=== PATIENT | male | born 1995 | race Asian ===

== ENCOUNTER 2019-02-20 22:57 | Emergency (ER) | payer OTHER ==
--- NOTE | 2019-02-20 23:24 | ED ---
Lower Extremity - HPI Summary HPI Summary: 23 yo male presents to [facility] with LEFT ankle injury. He tells me that he was walking down the outside steps this evening and twisted his left ankle and fell. Noticed deformity. Came directly to the ED. Denies numbness or tingling. Nothing OTC for discomfort. - History of Current Complaint Chief Complaint: EDExtremityLower Stated Complaint: LT ANKLE INJURY PER PT Time Seen by Provider: 02/20/19 23:24 Hx Obtained From: Patient Severity Initially: Severe Severity Currently: Moderate Pain Intensity: 7 Pain Scale Used: 0-10 Numeric - Allergies/Home Medications Allergies/Adverse Reactions: Allergies Allergy/AdvReac Type Severity Reaction Status Date / Time No Known Allergies Allergy Verified 02/20/19 23:06 PMH/Surg Hx/FS Hx/Imm Hx Endocrine/Hematology History: Denies: Hx Blood Disorders, Hx Diabetes Cardiovascular History: Denies: Hx Cardiac Arrest, Hx Hypertension Respiratory History: Denies: Hx Asthma, Hx Chronic Obstructive Pulmonary Disease (COPD) Neurological History: Denies: Hx CVA, Hx Headaches - Surgical History Surgical History: None - Immunization History Immunizations Up to Date: Yes Infectious Disease History: No Infectious Disease History: Denies: Traveled Outside the [place] in Last 30 Days - Family History Known Family History: Positive: None - Social History Occupation: Student Lives: Dormitory/Roommates Alcohol Use: Occasionally Substance Use Type: Reports: None Smoking Status (MU): Never Smoked Tobacco Review of Systems Constitutional: Negative Cardiovascular: Negative Respiratory: Negative Gastrointestinal: Negative Musculoskeletal: Other - Left ankle pain Skin: Negative Neurological: Negative Psychological: Normal All Other Systems Reviewed And Are Negative: No Physical Exam - Summary Physical Exam Summary: GENERAL: NAD. WDWN. No pain distress. SKIN: No rashes, sores, lesions, or open wounds. CHEST: No accessory muscle use. Breathing comfortably and in no distress. CV: Pulses intact PT and DP. Cap refill <2seconds MSK: LEFT ANKLE: Moderate edema. Noticed lateral deformity at distal fibula. NEURO: Alert. Sensations intact and symmetric B/L LEs PSYCH: Age appropriate behavior. Triage Information Reviewed: Yes Vital Signs On Initial Exam: Initial Vitals Temp Pulse Resp BP Pulse Ox 100.2 F 99 18 142/67 96 02/20/19 23:06 02/20/19 23:06 02/20/19 23:06 02/20/19 23:06 02/20/19 23:06 Vital Signs Reviewed: Yes Procedures - Sedation Patient Received Moderate/Deep Sedation with Procedure: No - Splinting 1 Location: left ankle Hand-Made Type: orthoglass Splint: posterior walking Pre-Proc Neuro Vasc Exam: normal Post-Proc Neuro Vasc Exam: normal Splint Applied by Provider: [facility] - Vital Signs Vital Signs Temp Pulse Resp BP Pulse Ox 02/20/19 23:06 100.2 F 99 18 142/67 96 - Laboratory Lab Statement: Any lab studies that have been ordered have been reviewed, and results considered in the medical decision making process. - Radiology Ankle XR Radiology Interpretation Completed By: ED Physician Summary of Radiographic Findings: Distal fibula spiral fracture and medial malleolus motise widen - reviewed with Dr. Renee Tibfib XR Radiology Interpretation Completed By: ED Physician Summary of Radiographic Findings: Distal fib spiral fx Lower Extremity Course/Dx - Course Course Of Treatment: XR wet reads as above. Discussed with Dr. Francis of Ortho and she recommends splinting and call the [facility] on friday for an appt. Discussed with pt. He was placed in a posterior and sugar tong splint and provided with crutches to be non-weight bearing. May take tylenol/ibuprofen as directed for discomfort. elevate and ice. - Diagnoses Provider Diagnoses: Spiral fracture of shaft of fibula Discharge ED - Sign-Out/Discharge Documenting (check all that apply): Patient Departure - Discharge Plan Condition: Stable Disposition: HOME Patient Education Materials: Ankle Fracture (ED) Referrals: No Primary Care Phys,NOPCP [Primary Care Provider] - Radha Francis MD [Medical Doctor] - 2 Days Additional Instructions: If you develop a fever, shortness of breath, chest pain, new or worsening symptoms - please call your PCP or go to the ED immediately. Rest, Ice, and elevate your ankle as much as possible Use the crutches to be non-weight bearing Please call Orthopedics at the number below on Friday morning and they will see you May take tylenol/ibuprofen as directed for discomfort - Billing Disposition and Condition Condition: STABLE Disposition: Home
[2019-02-21] MEDS ORDERED: Ibuprofen TAB* 800 MG PO ONE (00:09)
[2019-02-21 01:07] VITALS: BP 142/77
== END 2019-02-21 01:04 | disposition home or self-care (01) ==
LOC: ED 22:57
DX: S82.442A Displaced spiral fracture of shaft of left fibula, initial encounter for closed fracture (principal); W10.9XXA Fall (on) (from) unspecified stairs and steps, initial encounter; Y92.9 Unspecified place or not applicable
CPT/HCPCS: 99282; A9270-GY

== ENCOUNTER → 2019-02-25 11:59 | Day surgery (SDC) | payer OTHER ==
[~2019-02-25 11:59] MED LIST: Buffered Lidocaine 1% SYRIN* 1 ML/SYRINGE INTRADERM ONE; Bupivacaine 0.5%* 50 ML MDV VIAL ONE; Dexamethasone TAB* 4 MG ONE; Dexamethasone TAB* 4 MG PO ONE; DiMENhydriNATE IV* 50 MG/ML VIAL IV PUSH PRN; Famotidine IV* 10 MG/ML 2 ML (20 mg) IV ONE; Famotidine IV* 10 MG/ML 2 ML (20 mg) ONE; HYDROmorphone INJ1* 1 MG/ML SYRINGE ONE; KETAMINE HCL* 50 MG/ML 10 ML VIAL ONE; Ketorolac INJ* 30 MG/ML 1 ML VIAL ONE; Metoprolol Tartrate IV* 1 MG/ML 5 ML VIAL ONE; Midazolam* 1 MG/ML 2 ML VIAL (2 MG) ONE; Midazolam* 1 MG/ML 5 ML VIAL (5 MG) ONE; Naloxone* 0.4 MG/ML 1 ML VIAL IV PRN; Ondansetron ODT TAB* 4 MG ONE; Ondansetron ODT TAB* 4 MG PO ONE; PROCHLORPERAZINE INJ 5 MG/ML 2 ML VIAL IV PRN; Propofol* 10 MG/ML 20 ML BTL ONE; Scopolamine 1.5 mg* PATCH TRANSDERM PRN; Scopolamine PATCH Remove* 1 NOTE MISC PATCH OFF ONE; ceFAZolin 2 GM in NS PREMIX(*) 2 GM/100 ML BAG IVPB ONE; fentaNYL* 50 MCG/ML 2 ML VIAL (100 MCG VIAL) IV PRN; fentaNYL* 50 MCG/ML 2 ML VIAL (100 MCG VIAL) ONE; oxyCODONE/Acetamin 5/325 MG* TAB PO PRN
[2019-02-25] MEDS: Lactated Ringers 1000 ML Bag* 1,000 ML IV SCH ×2 (12:45→15:41)
[2019-02-25] MEDS: HYDROmorphone INJ1* 1 MG/ML SYRINGE IV PRN ×4 (15:02→15:18)
--- NOTE | 2019-02-25 15:09 | OP ---
Operative Report - Blank - Operative Report Date of Operation: 02/25/19 Note: PATIENT: Kyle Douglass DATE OF : 1995 DATE OF SURGERY: 02/25/2019 SURGEON: Filiberto Yee MD CARPENTER HELPER MAINTENANCE: RANDA Cross, whos assistance was necessary for positioning, retraction, help with instrumentation, and closure. ANESTHESIOLOGIST: Dr. Ruiz PREOPERATIVE DIAGNOSIS: Left ankle fracture POSTOPERATIVE DIAGNOSIS: Left ankle fracture and disruption of the distal tibia- fibula syndesmosis. OPERATION: 1. Left ankle lateral malleolar fracture open reduction and internal fixation. 2. Left distal tibia-fibula syndesmosis open reduction and internal fixation. ANESTHESIA: General IMPLANTS: Arthrex ankle fracture set plate and screws and tightrope TOURNIQUET TIME: About 1 hour with a well-padded thigh tourniquet at 250mmHg SPECIMENS: none ESTIMATED BLOOD LOSS: minimal COMPLICATIONS: none STATUS: Stable from the operating room to the recovery room and then home. INDICATIONS FOR PROCEDURE: Kyle sustained an unstable left ankle fracture. Both operative and non operative treatment alternatives were reviewed. Further, the nature and risks of surgery were reviewed in careful detail, in the office as well as the pre- operative holding area. Our discussions regarding the risks of surgery included , but were not limited to, infection, wound problems, nerve injury, neuroma, RSD , persistent symptoms, blood clot, nonunion, malunion, post-traumatic arthritis , hardware failure, failure of the surgery, and even the remote chance of catastrophic complication. DESCRIPTION OF PROCEDURE: The patient was seen in the preoperative holding unit and informed written consent was obtained. The appropriate extremity was marked. The patient was then brought to the operating room and carefully positioned on the operating room table. Anesthesia was induced. All bony prominences were padded with great care. A well-padded thigh tourniquet was placed. A chlorhexidine based pre- scrub was performed followed by a chloraprep prep and drape in standard sterile fashion. A surgical safety pause was then conducted in which we confirmed the appropriate patient, extremity, planned procedure, availability of equipment, indication and administration of prophylactic antibiotics, and DVT prophylaxis in the form of a compression boot on the non-surgical extremity. I began with Esmarch exsanguination of the limb and inflated the tourniquet. I then utilized a laterally based incision overlying the distal fibula. Great care was taken to protect the superficial peroneal nerve, which was not visualized within the field of view. I dissected down through the soft tissue layers to expose the distal fibula. I then exposed the fractures. Fracture hematoma was removed. I gained a reduction utilizing pointed reduction clamps and then held this provisionally with K-wires. Three 3.5mm cortical lag screws were placed perpendicular to the fracture planes. I placed an anatomic plate laterally and then confirmed the reduction and the position of the plate fluoroscopically. I placed screws to hold the plate to the bone. The provisional fixation was removed and then I again confirmed fluoroscopically the appropriate position of the plate and screw lengths. At this point, I performed a stress fluoroscopic examination. I utilized a Cotton test, as well as an external rotation stress test, to evaluate the distal tib-fib syndesmosis. There was syndesmotic instability appreciated fluoroscopically. I then explored the syndesmosis directly and again appreciated abnormal motion. Therefore, I proceeded with open reduction and internal fixation of the distal tib-fib syndesmosis. We held the syndesmosis reduced and were pleased with syndesmotic reduction both clinically under direct visualization, as well as fluoroscopically. I utilized a syndesmotic tightrope through the plate to hold the syndesmosis reduced. Final fluoroscopic images were obtained demonstrating a good reduction of both the fracture and the syndesmosis. At this point, we irrigated copiously and then closed in layers meticulously utilizing 3-0 Monocryl for the deep and subdermal layers and zayda for the skin. A sterile dressing was then applied followed by a splint with the ankle in a neutral position. The patient was then awakened from anesthesia and transferred to the recovery room in stable condition. There were no complications. All needle and sponge counts were correct at the end of the case. ATTESTATION: I attest I was present and scrubbed and performed the critical portions of the procedure myself. POSTOPERATIVE PLAN: The postop plan is for [id number] for an anticipated duration of 6 weeks. Follow-up will be in 2 weeks. At that time we will likely transition into a [id number] short leg cast.
[2019-02-25 16:11] VITALS: BP 137/79
== END | disposition home or self-care (01) ==
LOC: OR 11:59
PROVIDERS: ATTEND Orthopaedic Surgery
DX: S82.62XA Displaced fracture of lateral malleolus of left fibula, initial encounter for closed fracture (principal); W00.1XXA Fall from stairs and steps due to ice and snow, initial encounter; Y92.9 Unspecified place or not applicable
CPT/HCPCS: 76000; A9270-GY; C1713; J0690; J1170; J1885; J2250; J2704; J3010; J3490; J8540